=== PATIENT | male | born 1960 | race Caucasian/White ===

== ENCOUNTER → 2021-04-26 | Outpatient (CLI) | payer BC ==
[~2021-04-26] MED LIST: PROHANCE 279.3MG/ML 15ML VIAL As Ordered ONE; PROHANCE 279.3MG/ML 5ML VIAL As Ordered ONE
--- NOTE | 2021-04-27 09:27 | REP ---
INDICATION: ELEVATED PSA. COMPARISON: No comparison study. TECHNIQUE: Using a phased array surface coil, small zqnjk-mn-kheg imaging was acquired using T2 weighted scans in the axial, coronal, and sagittal imaging planes. Small adqrq-rv-ocgg diffusion-weighted sequences are acquired. Small rnnis-fy-zdvg axial T1 weighted scans are acquired dynamically before and after the intravenous administration of 16 mL of ProHance. Imaging is reviewed using the [employer] computer-aided detection system. FINDINGS: There is no evidence of skeletal metastatic disease in the visualized bony structures. No pelvic mass or adenopathy is appreciated. Prostate is enlarged and shows hypertrophy of the central gland consistent with BPH. Glandular dimensions are 4.9 x 4.3 x 3.9 cm. Calculated glandular volume 44.7 mL. Seminal vesicles are somewhat fluid-filled. No extraprostatic disease is appreciated. Three focal abnormalities are identified and submitted for consideration of fusion directed needle biopsy. Lesion 1 is in the right mid posterior peripheral zone measuring 1.7 x 1.0 x 1.0 cm with a calculated volume of 1.21 mL. This is a focal area of low T2 signal intensity with some decrease in diffusion ADC and mildly increased contrast enhancement. PI-RADS category 3 of 5. Lesion 2 is in the left mid posterior transition zone with a calculated volume of 0.45 mL and dimensions of 1.0 x 0.9 x 1.0 cm. It is characterized by low T2 signal intensity, indistinct decrease in diffusion weighted ADC, and type 3 contrast enhancement kinetics. PI-RADS 3 of 5. Lesion 3 is in the right base transition zone with a calculated volume of 0.46 mL and dimensions of 1.3 by 1.0 cm. It shows low T2 signal intensity no abnormality on diffusion weighted scanning and type 3 enhancement curve. PI-RADS 2 of 5 IMPRESSION: Multiparametric prostate MRI study as above. <Electronically signed by Yayo Arteaga > 04/27/21 [id number]
== END ==
LOC: M RAD 14:39
PROVIDERS: ATTEND Nurse Practitioner Women's Health
DX: R97.20 Elevated prostate specific antigen [PSA] (principal)

== ENCOUNTER → 2021-05-15 | Outpatient (REF) | payer BC | LOC: M SMT PRO 11:58 | PROVIDERS: ATTEND Urology | DX: R97.20 Elevated prostate specific antigen [PSA] (principal) ==